=== PATIENT | female | born 1975 | race Caucasian/White ===

== ENCOUNTER 2017-09-16 07:24 | Emergency (ER) | payer OTHER ==
[~2017-09-16] VITALS: Ht 167.6 cm; Wt 60.2 kg
[2017-09-16 08:57] LABS: BASOPHIL (%) 0.2 % (0-1); EOSINOPHIL (%) 0.2 % (0-5); HEMATOCRIT 39.7 % (36.0-46.0); HEMOGLOBIN 13.1 G/DL (11.9-15.5); IMMATURE GRANULOCYTE (%) 2.2 % (0.0-0.7); LYMPHOCYTE (%) 10.5 % (15-42); LYMPHOCYTE COUNT 1.7 K/uL (1.0-2.8); MCV 87.8 FL (83-99); MONOCYTE (%) 7.2 % (3-12); MONOCYTE COUNT 1.2 K/uL (0-0.8); NEUTROPHIL (%) 79.7 % (45-76); NEUTROPHIL COUNT 12.9 K/uL (1.8-6.4); PLATELET COUNT 467 K/uL (156-360); RBC DIS.WIDTH-CV 12.9 % (11.8-14.6); RBC DIS.WIDTH-SD 41.6 % (39-53); RED BLOOD COUNT 4.52 M/uL (3.80-5.20); WHITE BLOOD COUNT 16.2 K/uL (4.1-10.2)
[2017-09-16 09:07] LABS: CHLORIDE 100 mEq/L (99-109); POTASSIUM 3.7 mEq/L (3.7-5.4); SODIUM 135 mEq/L (136-147)
[2017-09-16 09:09] LABS: GLUCOSE 100 mg/dL (70-99)
[2017-09-16 09:13] LABS: CREATININE 0.9 mg/dL (0.6-1.3); UREA NITROGEN (BUN) 8 mg/dL (9-23)
[2017-09-16 09:18] LABS: GFR ESTIMATE (CALCULATED) > 59 mL/min/
[2017-09-16 09:58] LABS: APPEARANCE SL.HAZY ((CLEAR)); BILIRUBIN NEGATIVE; BLOOD SMALL; COLOR YELLOW ((YELLOW)); GLUCOSE (STRIP) NEGATIVE; KETONES NEGATIVE; LEUKOCYTES NEGATIVE; NITRITE NEGATIVE; PROTEIN (STRIP) NEGATIVE; SPECIFIC GRAVITY 1.014 (1.000-1.030); UROBILINOGEN 0.2 MG/DL (0.2-1.0)
[2017-09-16 10:06] LABS: BACTERIA RARE /HPF; CALCIUM OXALATE CRYSTALS 2+ /HPF; EPITHELIAL CELLS 1+ /HPF; MUCUS TRACE /LPF; RED BLOOD CELLS 0-5 /HPF (0-5); UCUL ADDED? NO; WHITE BLOOD CELLS 0-5 /HPF (0-5)
[2017-09-16 10:58] LABS: QUANTITATIVE HCG < 4.0 MIU/ML
[2017-09-16 11:37] VITALS: BP 102/60
== END 2017-09-16 11:38 | disposition home or self-care (01) ==
LOC: EME 07:24
PROVIDERS: Nurse Practitioner Family
DX: B34.9 Viral infection, unspecified (principal); D72.829 Elevated white blood cell count, unspecified; R05 Cough; R63.0 Anorexia; R50.9 Fever, unspecified; R10.9 Unspecified abdominal pain; R30.0 Dysuria; R07.9 Chest pain, unspecified
CPT/HCPCS: 71046; 80048; 81003; 83605; 84702; 85025; 87502; 99281; 99284